=== PATIENT | male | born 1955 | race Two or more races ===

== ENCOUNTER 2019-01-27 23:52 | Emergency (ER) | payer MEDICARE, OTHER ==
[~2019-01-27] VITALS: Ht 167.6 cm; Wt 96.3 kg
[2019-01-28 02:07] VITALS: BP 123/72
== END 2019-01-28 02:59 | disposition home or self-care (01) ==
LOC: ED 01-28 00:59
DX: R31.0 Gross hematuria (principal); I48.91 Unspecified atrial fibrillation
CPT/HCPCS: 36415; 51702; 80053; 81001; 85025; 87086; 99284

== ENCOUNTER 2019-11-15 10:26 | Outpatient (CLI) | payer MEDICARE ==
[~2019-11-15 10:26] MED LIST: ACET-1600 PO; CEFD300C37 PO; FLUTICASONE PROPI NAS; METO25TA35 PO; OXYB5TAB10 PO; RIVA20TA PO; SERT50TA28 PO; TAMS-11 PO
[2019-11-15] MEDS ORDERED: SODIUM CHLORIDE FLUSH 10ML SYR IVF SCH (11:00)
== END 2019-11-15 11:02 | disposition home or self-care (01) ==
LOC: CACL 10:26 → OUT 10:26 → CACL 11:02 → OUT 11:02 → EDSTATUS 12:30
PROVIDERS: ATTEND Internal Medicine Cardiovascular Disease
DX: Z02.9 Encounter for administrative examinations, unspecified (principal)

== ENCOUNTER → 2019-12-31 | Outpatient (CLI) | payer MEDICARE | END | disposition home or self-care (01) | LOC: CFH 12:55 | PROVIDERS: ATTEND Internal Medicine Cardiovascular Disease | DX: I48.0 Paroxysmal atrial fibrillation (principal); I10 Essential (primary) hypertension; Q24.8 Other specified congenital malformations of heart | CPT/HCPCS: 93306 ==

== ENCOUNTER → 2020-02-04 | Outpatient (CLI) | payer MEDICARE ==
[~2020-02-04] MED LIST changes: +OMNIPAQUE 350 MG/ML, 150 ML BOTTLE ONE
== END | disposition home or self-care (01) ==
LOC: CFH 12:23
PROVIDERS: ATTEND Internal Medicine Cardiovascular Disease
DX: I48.0 Paroxysmal atrial fibrillation (principal)
CPT/HCPCS: 71046; 75572; 82565; Q9967

== ENCOUNTER 2020-02-07 09:51 | Observation (INO) | payer MEDICARE ==
[~2020-02-07] VITALS: Ht 167.6 cm; Wt 97.8 kg
[~2020-02-07 09:51] MED LIST changes: -OMNIPAQUE 350 MG/ML, 150 ML BOTTLE ONE
[2020-02-07] MEDS ORDERED: TRAZ50TA66 PO (10:26)
[2020-02-07] MEDS ORDERED: AZEL137S4 NAS (10:26)
[2020-02-07] MEDS ORDERED: SERT50TA28 PO (10:26)
[2020-02-07] MEDS ORDERED: FINA5TAB4 PO (10:26)
[2020-02-07] MEDS ORDERED: PLEASE ENTER HEIGHT AND WEIGHT MC SCH (10:30)
[2020-02-07 10:31] VITALS: BP 106/67
[2020-02-07] MEDS ORDERED: SODIUM CHLORIDE 0.9% 1,000 ML IV SCH (11:00)
[2020-02-07] MEDS ORDERED: SODIUM CHLORIDE 0.9% 1,000 ML IV ONE (11:00)
[2020-02-07] MEDS ORDERED: LIDOCAINE 2%, 20ML ONE (13:40)
[2020-02-07] MEDS ORDERED: DEXAMETHASONE 4 MG/ML, 1ML ONE (13:49)
[2020-02-07] MEDS ORDERED: HEPARIN 1,000 UNITS/ML, 30ML ONE (13:49)
[2020-02-07] MEDS ORDERED: ONDANSETRON 2MG/ML, 2ML ONE (13:49)
[2020-02-07] MEDS ORDERED: SUCCINYLCHOLINE 20 MG/ML, 10ML ONE (13:49)
[2020-02-07] MEDS ORDERED: MIDAZOLAM 1 MG/ML, 2ML ONE (13:50)
[2020-02-07] MEDS ORDERED: FENTANYL PF 250 MCG/5ML ONE ×2 (13:51→16:00)
[2020-02-07] MEDS ORDERED: EPHEDRINE 50 MG/ML, 1ML ONE (14:18)
[2020-02-07] MEDS ORDERED: PROPOFOL 10 MG/ML, 20ML ONE (15:17)
[2020-02-07] MEDS ORDERED: ROCURONIUM 10MG/ML,5ML ONE (15:17)
[2020-02-07] MEDS ORDERED: MIDAZOLAM 1 MG/ML, 2ML IV PRN (16:30)
[2020-02-07] MEDS ORDERED: FENTANYL PF 100 MCG/2ML IV PRN (16:30)
[2020-02-07] MEDS ORDERED: ONDANSETRON 2MG/ML, 2ML IVPush PRN (16:30)
[2020-02-07] MEDS ORDERED: OXYcodone 5 MG/5 ML ORAL.SOL UDC PO PRN (16:30)
[2020-02-07] MEDS ORDERED: PROMETHAZINE 25 MG/ML, 1ML IVPush PRN (16:30)
[2020-02-07] MEDS ORDERED: hydrALAzine 20 MG/ML, 1ML IV PRN (16:30)
[2020-02-07] MEDS ORDERED: DIAZEPAM 5 MG/ML, 2ML IVPush PRN (16:30)
[2020-02-07] MEDS ORDERED: EPHEDRINE 50 MG/ML, 1ML IVPush PRN (16:30)
[2020-02-07] MEDS ORDERED: DIPHENHYDRAMINE 50 MG/ML, 1ML IVPush PRN (16:30)
[2020-02-07] MEDS ORDERED: LABETALOL 5MG/ML, 20ML IV PRN (16:30)
[2020-02-07] MEDS ORDERED: ACETAMINOPHEN 325 MG TABLET PO PRN (16:30)
[2020-02-07] MEDS ORDERED: HYDROmorphone 1 MG/ML, 1ML INJ IVPush PRN (16:30)
[2020-02-07] MEDS ORDERED: MEPERIDINE/PF 25MG/0.5ML IVPush PRN (16:30)
[2020-02-07] MEDS ORDERED: ALBUTEROL SULFATE 2.5 MG/3 ML NPPB PRN (16:30)
[2020-02-07] MEDS ORDERED: PROMETHAZINE 12.5 MG SUPP PR PRN (16:30)
[2020-02-07] MEDS ORDERED: ACETAMINOPHEN 650 MG/20.3 ML UDC ONE (16:45)
[2020-02-07] MEDS: RIVAROXABAN 20 MG TABLET PO SCH (16:45)
[2020-02-07] MEDS: ACETAMINOPHEN 325 MG TABLET PO PRN ×2 (18:59→23:28)
[2020-02-07 19:30] VITALS: BP 113/60
[2020-02-07 19:32] VITALS: BP 127/78
[2020-02-07 20:05] VITALS: BP 129/82
[2020-02-07 20:10] VITALS: BP 123/72
[2020-02-07] MEDS: TRAZODONE 50MG TABLET PO SCH (21:00)
[2020-02-07] MEDS ORDERED: RIVAROXABAN 20 MG TABLET PO SCH (21:00)
[2020-02-07] MEDS: COLCHICINE 0.6 MG CAPSULE PO SCH (21:22)
[2020-02-07] MEDS: METOPROLOL TARTRATE 25 MG TAB PO SCH (21:22)
[2020-02-08] MEDS: TRAZODONE 50MG TABLET PO SCH (00:31)
[2020-02-08 01:15] VITALS: BP 114/72
[2020-02-08 08:56] VITALS: BP 101/67
[2020-02-08] MEDS ORDERED: FINASTERIDE 5 MG TABLET PO SCH (09:00)
[2020-02-08] MEDS ORDERED: SERTRALINE 50MG TABLET PO SCH ×2 (09:00)
[2020-02-08] MEDS ORDERED: TAMSULOSIN 0.4 MG CAP.ER.24H PO SCH (09:00)
[2020-02-08] MEDS: METOPROLOL TARTRATE 25 MG TAB PO SCH (09:35)
[2020-02-08] MEDS: COLCHICINE 0.6 MG CAPSULE PO SCH (09:35)
[2020-02-08] MEDS: RIVAROXABAN 20 MG TABLET PO SCH (09:35)
[2020-02-08 13:00] VITALS: BP 105/64
== END 2020-02-08 14:35 | disposition home or self-care (01) ==
LOC: CACL 09:51 → ORIP 16:05 → 5SO 17:29 → DCLOUNGE 02-08 14:25
PROVIDERS: ADMIT Internal Medicine Cardiovascular Disease; ATTEND Internal Medicine Cardiovascular Disease
DX: I48.0 Paroxysmal atrial fibrillation (principal); N40.0 Benign prostatic hyperplasia without lower urinary tract symptoms; E66.9 Obesity, unspecified; Z95.0 Presence of cardiac pacemaker; Z79.899 Other long term (current) drug therapy; Z68.34 Body mass index [BMI] 34.0-34.9, adult
CPT/HCPCS: 36415; 85347; 87635; 93308; 93312; 93321; 93325; 93613; 93656; 93662; C1730; C1732; C1759; C1766; C1893; C1894; G0378; J0330; J1100; J1644; J2250; J2405; J2704; J3010; J3490

== ENCOUNTER → 2020-08-26 | Outpatient (CLI) | payer MEDICARE ==
[~2020-08-26] MED LIST changes: +AZEL137S4 NAS; +FINA5TAB4 PO; +REGADENOSON 0.4 MG/5 ML SYRINGE ONE; +TRAZ50TA66 PO
== END | disposition home or self-care (01) ==
LOC: CFH 12:45
PROVIDERS: ATTEND Registered Nurse
DX: I10 Essential (primary) hypertension (principal); I48.0 Paroxysmal atrial fibrillation; R07.9 Chest pain, unspecified
CPT/HCPCS: 78452; 93017; A9502; J2785